=== PATIENT | female | born 1970 | race Caucasian/White ===

== ENCOUNTER 2018-03-05 12:44 | Emergency (ER) | payer BC ==
[2018-03-05 14:40] VITALS: BP 129/75
--- NOTE | 2018-03-05 15:05 | UC ---
General HPI - HPI Summary HPI Summary: pt states she was stung on her R arm thursday by a flying insect. the 2 sites are very itchy and continue to swell despite topical benadryl. denies fever, sob /n/v/d and pain to site. states she reacts to any bite. - History of Current Complaint Chief Complaint: UCSkin Stated Complaint: BUG BITES Time Seen by Provider: 03/05/18 14:55 Hx Obtained From: Patient Hx Last Menstrual Period: 02/24/18 Onset/Duration: Gradual Onset Timing: Constant Pain Intensity: 3 Aggravating: nothing Alleviating: nothing Associated Signs & Symptoms: Negative: Cough, Dizziness, Diarrhea, Diaphoresis, Fever, Nausea, SOB, Vomiting, Wheezing - Allergy/Home Medications Allergies/Adverse Reactions: Allergies Allergy/AdvReac Type Severity Reaction Status Date / Time latex Allergy Rash Verified 03/05/18 14:42 Sulfa (Sulfonamide Allergy Itching Verified 03/05/18 14:42 Antibiotics) PMH/Surg Hx/FS Hx/Imm Hx Endocrine History: Thyroid Disease Respiratory History: Asthma - Surgical History Surgical History: Yes Surgery Procedure, Year, and Place: [id number]. appENDECTOMY. gall bladder REMOVED. hernia repair-2005- DONE IN [place]. gastric [id number] IN [place] - Family History Known Family History: Positive: None - Social History Occupation: Employed Full-time Lives: With Family Alcohol Use: Weekly Alcohol Amount: WINE 2-3 TIMES PER WEEK Substance Use Type: None Smoking Status (MU): Never Smoked Tobacco - Immunization History Most Recent Influenza Vaccination: 09/01/14 Vaccination Up to Date: Yes Review of Systems Constitutional: Negative Skin: Rash - R arm Eyes: Negative ENT: Negative Respiratory: Negative Cardiovascular: Negative Gastrointestinal: Negative Genitourinary: Negative Motor: Negative Neurovascular: Negative Musculoskeletal: Negative Neurological: Negative Psychological: Negative Is Patient Immunocompromised?: No All Other Systems Reviewed And Are Negative: Yes Physical Exam Triage Information Reviewed: Yes Appearance: Well-Appearing Vital Signs: Initial Vital Signs Temp 99.5 F 03/05/18 14:33 Pulse 86 03/05/18 14:33 Resp 16 03/05/18 14:33 BP 129/75 03/05/18 14:33 Pulse Ox 100 03/05/18 14:33 Vital Signs Reviewed: Yes Eyes: Positive: Conjunctiva Clear ENT: Positive: Pharynx normal, TMs normal. Negative: Nasal congestion, Nasal drainage Neck: Positive: Supple, Nontender, No Lymphadenopathy Respiratory: Positive: Lungs clear, Normal breath sounds Cardiovascular: Positive: RRR, No Murmur Abdomen Description: Positive: Nontender, No Organomegaly, Soft. Negative: Distended, Guarding Bowel Sounds: Positive: Present Musculoskeletal: Positive: ROM Intact Neurological: Positive: Alert Psychological: Positive: Age Appropriate Behavior Skin Exam: Normal Skin: Positive: rashes - 2 red raised wheels(about 4cm each) to R forearm with a central sting to each. Non tender, no streaking no axillary or epitroclear adenopathy. RUE has full s/v/m function. Course/Dx - Course Course Of Treatment: exam c/w local reaction to insect sting. no concern for infection. will tx po benadryl and po steroids - Differential Dx - Multi-Symptom Provider Diagnoses: Local reactions to insect stings Discharge - Sign-Out/Discharge Documenting (check all that apply): Discharge/Admit/Transfer - Discharge Plan Condition: Stable Disposition: HOME Prescriptions: predniSONE TAB* [Deltasone TAB*] 40 mg PO DAILY #10 tab Patient Education Materials: Insect Bite or Sting (ED) Referrals: Kalen Casas MD [Primary Care Provider] - 5 Days Additional Instructions: TAKE OVER THE COUNTER BENADRYL EVERY 6 HOURS UNTIL REACTION RESOLVES - Billing Disposition and Condition Condition: STABLE Disposition: HOME
== END 2018-03-05 15:21 | disposition home or self-care (01) ==
LOC: UCCORT 12:44
DX: T63.481A Toxic effect of venom of other arthropod, accidental (unintentional), initial encounter (principal); Y92.9 Unspecified place or not applicable; Z88.2 Allergy status to sulfonamides; Z91.040 Latex allergy status
CPT/HCPCS: 99212; G0463